=== PATIENT | male | born 1930 ===

== ENCOUNTER 2016-08-02 15:35 | Emergency (ER) | payer MEDICARE, MEDICAID ==
[2016-08-02 15:35] VITALS: BMI 31.1
[2016-08-02 15:46] VITALS: O2SAT 94
[2016-08-02 16:11] LABS: BASO # 0.1 K/uL (0.0-0.2); BASO % 0.6 % (0.0-2.0); EOS # 0.2 K/uL (0.0-0.7); EOS % 1.9 % (0.0-4.0); LYMPH # 0.8 K/uL (1.0-4.3); LYMPH % 9.1 % (20.0-40.0); MEAN CELL VOLUME 87.8 fL (80.0-94.0); MEAN CORPUSCULAR HEMOGLOBIN 29.7 pg (27.0-31.0); MEAN CORPUSCULAR HGB CONC 33.8 g/dL (33.0-37.0); MEAN PLATELET VOLUME 6.9 fL (7.2-11.7); MONO # 1.1 K/uL (0.0-0.8); MONO % 12.3 % (0.0-10.0); PLATELET COUNT 166 K/uL (130-400); RED CELL DISTRIBUTION WIDTH 13.6 % (11.5-14.5); WHITE BLOOD COUNT 8.8 K/uL (4.8-10.8)
[2016-08-02 16:18] LABS: CHLORIDE 95 mmol/L (98-107); SODIUM 129 mmol/L (132-148)
[2016-08-02 16:19] LABS: POTASSIUM 4.5 mmol/L (3.6-5.2)
[2016-08-02 16:21] LABS: ALKALINE PHOSPHATASE 101 U/L (38-126); ALT/SGPT 57 U/L (21-72); AST/SGOT 54 U/L (17-59); BILIRUBIN,TOTAL 0.4 mg/dL (0.2-1.3); BLOOD UREA NITROGEN 29 mg/dL (9-20); CARBON DIOXIDE 22 mmol/L (22-30); GFR AFRICAN-AMERICAN 44; GLUCOSE,RANDOM 122 mg/dL (75-110); TOTAL PROTEIN 7.4 g/dL (6.3-8.3)
[2016-08-02 16:22] LABS: CALCIUM 8.6 mg/dl (8.6-10.4)
[2016-08-02 16:48] LABS: EOSINOPHIL 4 % (0-4); NEUTROPHIL 76 % (50-75); TOTAL CELLS COUNTED 100
--- NOTE | 2016-08-02 16:50 | C.PDOC ---
History Of Present Illness 86 yr old male brought in via ambulance accompanied by family (history by family ), presents to the ER for evaluation of headache and burning sensation all over the head, especially to the back of the head which started WEIGHT CALCULATOR. Family reports afterwards the patients both hands started to tremble. Family states the patient had had these symptoms on and off for a long time. Patient denies fever , chills, vision changes, chest pain, SOB, nausea, vomiting, abdominal pain, diarrhea, dizziness, weakness or numbness. Time Seen by Provider: 08/02/16 15:49 Chief Complaint (Nursing): Headache History Per: Patient, Family History/Exam Limitations: clinical condition, language barrier Onset/Duration Of Symptoms: Sudden Onset (WEIGHT CALCULATOR) Past Medical History Reviewed: Historical Data, Nursing Documentation, Vital Signs Vital Signs: Last Vital Signs Temp 99.3 F 08/02/16 17:58 Pulse 70 08/02/16 17:58 Resp 20 08/02/16 17:58 BP 122/70 08/02/16 17:58 Pulse Ox 94 L 08/02/16 17:58 - Medical History PMH: HTN, Chronic Kidney Disease Family History: States: No Known Family Hx - Social History Hx Alcohol Use: No Hx Substance Use: No Review Of Systems Except As Marked, All Systems Reviewed And Found Negative. Constitutional: Negative for: Fever, Chills Eyes: Negative for: Vision Change Cardiovascular: Negative for: Chest Pain Respiratory: Negative for: Shortness of Breath Gastrointestinal: Negative for: Nausea, Vomiting, Abdominal Pain, Diarrhea Neurological: Positive for: Headache (headache and burning sensation to the head.). Negative for: Weakness, Numbness, Dizziness Physical Exam - Physical Exam Appears: Well, Non-toxic, No Acute Distress Skin: Warm, Dry Head: Atraumatic, Normacephalic Oral Mucosa: Moist Neck: Normal, Normal ROM, Supple Chest: Symmetrical, No Tenderness Cardiovascular: Rhythm Regular, No Murmur Respiratory: Normal Breath Sounds, No Rales, No Rhonchi, No Wheezing Gastrointestinal/Abdominal: Soft, No Tenderness, No Guarding, No Rebound, Hernia (Left inguinal hernia) Extremity: Normal ROM Neurological/Psych: Oriented x3, Normal Speech, Normal Motor Gait: With Assistance ED Course And Treatment - Laboratory Results Result Diagrams: 08/02/16 16:07 08/02/16 16:07 ECG: Interpreted By Me, Viewed By Me ECG Rhythm: Sinus Rhythm ECG Interpretation: Normal Rate From EC (BPM) O2 Sat by Pulse Oximetry: 94 (RA ) - CT Scan/US CT - Head Other Rad Studies (CT/US): Read By Radiologist, Radiology Report Reviewed CT/US Interpretation: PROCEDURE: CT HEAD WITHOUT CONTRAST. HISTORY: Headache burning back of head, shaking. COMPARISON: None available. TECHNIQUE: Axial computed tomography images were obtained through the head/brain without intravenous contrast. This CT exam was performed using one or more of the following dose reduction techniques: Automated exposure control, adjustment of the mA and/or kv according to patient size, and/or use of iterative reconstruction technique. Radiation dose: Total exam DLP = 858.01 mGy-cm. FINDINGS: HEMORRHAGE: No intracranial hemorrhage. BRAIN: No mass effect or edema. No atrophy or chronic microvascular ischemic changes. VENTRICLES: Unremarkable. No hydrocephalus. CALVARIUM: Unremarkable. PARANASAL SINUSES: Unremarkable as visualized. No significant inflammatory changes. MASTOID AIR CELLS: Unremarkable as visualized. No inflammatory changes. OTHER FINDINGS: None. IMPRESSION: No evidence of acute intracranial hemorrhage intracranial collection territorial infarct mass effect or midline shift. Medical Decision Making Medical Decision Making: Ordered * CT - Head * CXR * EKG * Troponin * CBC * Urinalysis * Tylenol PO Post UA results pt treated with IV rocephin after urine culture labs reviewed Na low, but no white count Pt had good home support, no fever, eating and drinking well, therefore trial of OP abx indicated Plan dc home PCP follow up Disposition Counseled Patient/Family Regarding: Studies Performed, Diagnosis, Need For Followup - Disposition Referrals: Yeyo Aden MD [Staff Provider] - Disposition: HOME/ ROUTINE Disposition Time: 18:45 Condition: FAIR Additional Instructions: Follow up with dr Oleary in 2 - 3 days Return to the ED promptly for any new or worsening symptoms Prescriptions: Ciprofloxacin [Cipro] 1 tab PO BID #14 tab Instructions: Urinary Tract Infection in Men (ED) Print Language: CZECH - Clinical Impression Clinical Impression: Urinary tract infection - Scribe Statement The provider has reviewed the documentation as recorded by the Markosiburmila Talavera Provider Attestation: All medical record entries made by the Scribe were at my direction and personally dictated by me. I have reviewed the chart and agree that the record accurately reflects my personal performance of the history, physical exam, medical decision making, and the department course for this patient. I have also personally directed, reviewed, and agree with the discharge instructions and disposition.
--- NOTE | 2016-08-02 16:53 | CT ---
PROCEDURE: CT HEAD WITHOUT CONTRAST. HISTORY: Headache burning back of head, shaking COMPARISON: None available. TECHNIQUE: Axial computed tomography images were obtained through the head/brain without intravenous contrast. This CT exam was performed using one or more of the following dose reduction techniques: Automated exposure control, adjustment of the mA and/or kv according to patient size, and/or use of iterative reconstruction technique. Radiation dose: Total exam DLP = 858.01 mGy-cm. FINDINGS: HEMORRHAGE: No intracranial hemorrhage. BRAIN: No mass effect or edema. No atrophy or chronic microvascular ischemic changes. VENTRICLES: Unremarkable. No hydrocephalus. CALVARIUM: Unremarkable. PARANASAL SINUSES: Unremarkable as visualized. No significant inflammatory changes. MASTOID AIR CELLS: Unremarkable as visualized. No inflammatory changes. OTHER FINDINGS: None. IMPRESSION: No evidence of acute intracranial hemorrhage intracranial collection territorial infarct mass effect or midline shift.
[2016-08-02 17:01] VITALS: RESP 20
[2016-08-02 17:46] LABS: RBC URINE 5 /hpf (0-3); URINE BACTERIA FEW (<OCC); URINE BILIRUBIN NEGATIVE (NEGATIVE); URINE BLOOD 1+ (NEGATIVE); URINE COLOR Yellow (YELLOW); URINE GLUCOSE (UA) NORMAL (Normal); URINE KETONE NEGATIVE (NEGATIVE); URINE LEUKOCYTE ESTERASE 3+ Leu/uL (Negative); URINE PROTEIN 1+ mg/dL (NEGATIVE); URINE UROBILINOGEN NORMAL mg/dL (0.2-1.0); WBC URINE 94 /hpf (0-5)
--- NOTE | 2016-08-02 17:51 | RAD ---
PROCEDURE: CHEST RADIOGRAPH, 1 VIEW HISTORY: AMS COMPARISON: Comparison is made to the previous study dated 07/10/2016 FINDINGS: LUNGS: No evidence of new infiltrate or consolidation in the lungs. PLEURA: No pneumothorax or pleural fluid seen. CARDIOVASCULAR: Normal. OSSEOUS STRUCTURES: No significant abnormalities. VISUALIZED UPPER ABDOMEN: Normal. OTHER FINDINGS: None. IMPRESSION: No active disease.
[2016-08-02 17:59] VITALS: BP 122/70; PULSE 70; TEMP 99.3
[2016-08-02] MEDS ORDERED: cefTRIAXone IV 1 gm in Dextros 1 GM in Dextrose 5% In Water 50 ML IVPB STA (17:59)
[2016-08-02] MEDS ORDERED: cefTRIAXone IV 1 gm in Dextros 50 ML IVPB ONE (18:13)
--- NOTE | 2016-08-07 13:13 | CARD ---
APPROVED REPORT EKG Measurement Heart [id number] <Conclusion> Normal sinus rhythm Normal ECG
== END 2016-08-02 18:30 | disposition home or self-care (01) ==
LOC: C.ER 15:35
DX: N39.0 Urinary tract infection, site not specified (principal)
CPT/HCPCS: 70450; 71010; 80053; 81001; 84484; 85025; 85610; 85730; 87086; 87181; 96374; 99285; J0696

== ENCOUNTER 2016-08-11 06:37 | Day surgery (SDC) | payer MEDICARE, MEDICAID ==
[2016-07-10 11:22] VITALS: BMI 31.1
[2016-08-11] MEDS ORDERED: Propofol 10 mg/ml Inj (20 ML) ONE ×2 (07:49→09:47)
[2016-08-11] MEDS ORDERED: Bupivacaine/Epi 0.25%-1:200,000 10 ml PF inj IJ ONE ×2 (07:50→07:59)
[2016-08-11] MEDS ORDERED: Lidocaine 1% Inj (20ml) ONE (07:50)
[2016-08-11] MEDS ORDERED: Rocuronium 10 mg/ml (5 ml) ONE (07:54)
[2016-08-11] MEDS ORDERED: ceFAZolin IV 2 gm in Dextrose 50 ML IVPB ONE (07:59)
[2016-08-11 08:09] LABS: CHLORIDE 101 mmol/L (98-107); POTASSIUM 3.9 mmol/L (3.6-5.2); SODIUM 136 mmol/L (132-148)
[2016-08-11 08:11] LABS: GFR AFRICAN-AMERICAN > 60
[2016-08-11 08:12] LABS: BLOOD UREA NITROGEN 18 mg/dL (9-20); CALCIUM 8.7 mg/dl (8.6-10.4); CARBON DIOXIDE 20 mmol/L (22-30); GLUCOSE,RANDOM 98 mg/dL (75-110)
[2016-08-11] MEDS ORDERED: Lactated Ringer's 1,000 ML IV ONE ×2 (08:20→09:30)
[2016-08-11] MEDS ORDERED: ePHEDrine 50 mg/ml Inj ONE (08:37)
[2016-08-11] MEDS ORDERED: Morphine 4 MG/ML VIAL ONE (09:59)
[2016-08-11] MEDS ORDERED: HYDROmorphone 0.5 mg/0.5 ml ISec IVP PRN (10:11)
--- NOTE | 2016-08-11 10:14 | PCM.SURG1 ---
Surgeon's Initial Post Op Note - Surgeon's Notes Surgeon: Sari Mixing Machine Feeder: PGY3, Abel RFNA Type of Anesthesia: General Endo Pre-Operative Diagnosis: L inguinal hernia Operative Findings: Indirect and direct L inguinal hernia Post-Operative Diagnosis: Indirect and direct L inguinal hernia Operation Performed: Robotic indirect and direct L inguinal hernia repair with mesh Specimen/Specimens Removed: hernia contents Estimated Blood Loss: EBL {In ML}: 10 Blood Products Given: N/A Drains Used: No Drains Post-Op Condition: Good Date of Surgery/Procedure: 08/11/16 Time of Surgery/Procedure: 08:15
[2016-08-11] MEDS ORDERED: Oxycodone/Acetaminophen 5/325 mg Tab PO ONE (10:16)
[2016-08-11 11:42] VITALS: O2SAT 96
[2016-08-11 12:32] VITALS: BP 121/87; PULSE 80; RESP 18; TEMP 96.7
--- NOTE | 2016-08-12 04:30 | OP ---
PROCEDURE DATE: 08/11/2016 PREOPERATIVE DIAGNOSIS: Left inguinal hernia. POSTOPERATIVE DIAGNOSIS: Left direct and indirect inguinal hernia. PROCEDURE DONE: Robotic left inguinal hernia repair with mesh. SURGEON: Huey Guo MD ASSISTANTS: Shannan Callahan. Shannan was present from the beginning to end of the procedure, helped in the prepping and draping, placement of the port, docking and undocking of the robot. Benny Geiger, PGY-3 resident. ANESTHESIA: General endotracheal tube anesthesia. ESTIMATED BLOOD LOSS: Around 10 mL. DRAINS: None. PATHOLOGY: Hernial sac and contents were sent for pathology. COMPLICATIONS: None. INTRAOPERATIVE FINDINGS: The patient had a large direct and very small indirect inguinal hernia on the left side. INTRAOPERATIVE STEPS: This 86-year-old male who was diagnosed with a left inguinal hernia. The patient was consented for the robotic left inguinal hernia repair with the mesh. Brought to the OR, placed supine on the operating table. After induction of the anesthesia, the Brooks catheter was placed and the abdomen was prepped and draped in the usual sterile fashion. Supraumbilical incision was made. After incising skin and subcutaneous tissue, the fascia was incised. Peritoneal cavity was entered. Pneumo was created. Another three 8 mm ports were placed in the right upper quadrant, left upper quadrant, left midline, and the left side off the midline and the robot was brought in. Camera arm and arm 1 and arm2 were docked and through the console, the dissection of the peritoneum was done from ASIS up to the midline and the dissection was carried down carried down medially to the pubic symphysis. The patient found to have unusual amount of adhesion, and the lysis of adhesion was done, and the patient found to have a direct large, as well as a small indirect defect, and inferiorly the peritoneum was dissected up to the vas deferens and spermatic cord vessels anteriorly . The inferior epigastric artery was identified and the lateral pelvic wall was identified, and after that mesh was implanted. After proper implantation of the mesh, the peritoneum was sutured with a 2-0 Vicryl V-Loc suture and pneumo was deflated. All the ports were taken out under vision. The robot was undocked before deflating the pneumo. The umbilical port site was closed in 2 layers, the fascia with 0 Vicryl interrupted suture, skin with a 4-0 Monocryl. Dry sterile dressing was applied. The patient tolerated the procedure well. Count of instruments and gauze was correct. There was no apparent complication. The patient was extubated in the OR, sent to the postanesthesia care unit in stable condition. Huey Guo MD cc: [id number] TT: 08/12/2016 04:29:14 tn MTDD
== END 2016-08-11 12:53 | disposition home or self-care (01) ==
LOC: C.SDS 06:37
PROVIDERS: ATTEND Surgery Surgical Critical Care
DX: K40.90 Unilateral inguinal hernia, without obstruction or gangrene, not specified as recurrent (principal)
CPT/HCPCS: 36415; 49507; 80048; 88302; J0690; J1170; J2001; J2270; J2405; J2704; J3010; J7120

== ENCOUNTER 2018-05-05 08:31 | Emergency (ER) | payer MEDICARE, MEDICAID ==
[2018-05-05 08:44] VITALS: TEMP 98.1; BMI 24.2
[2018-05-05 09:22] VITALS: BP 172/66; PULSE 64; RESP 21
[2018-05-05 09:22] LABS: BASO % 0.5 % (0.0-2.0); EOS # 0.5 K/uL (0.0-0.7); EOS % 6.5 % (0.0-4.0); HEMOGLOBIN 13.5 g/dL (12.0-18.0); LYMPH # 1.1 K/uL (1.0-4.3); LYMPH % 14.5 % (20.0-40.0); MEAN CELL VOLUME 89.5 fL (80.0-94.0); MEAN CORPUSCULAR HEMOGLOBIN 31.1 pg (27.0-31.0); MEAN CORPUSCULAR HGB CONC 34.8 g/dL (33.0-37.0); MEAN PLATELET VOLUME 7.2 fL (7.2-11.7); MONO # 0.8 K/uL (0.0-0.8); NEUT # 5.1 K/uL (1.8-7.0); NEUT % 68.5 % (50.0-75.0); NRBC % 0.1 % (0.0-2.0); RBC 4.32 Mil/uL (4.40-5.90); RED CELL DISTRIBUTION WIDTH 13.3 % (11.5-14.5); WHITE BLOOD COUNT 7.5 K/uL (4.8-10.8)
[2018-05-05 09:24] VITALS: O2SAT 94
--- NOTE | 2018-05-05 09:24 | C.PDOC ---
History Of Present Illness 88 years old male with PMHx of HTN, bradycardia, and hypothyroidism is brought to ED by his family for complaints of left sided chest pain associated with SOB that began 2 hours ago s/p upstairs in the hospital. Patient describes pain as constant, pluritic and non-radiating. Denies cough, fever, abdominal pain, nausea, or vomiting. Patient reports taking baby aspirin this morning. Time Seen by Provider: 05/05/18 08:37 Chief Complaint (Nursing): Chest Pain History Per: Patient History/Exam Limitations: no limitations Onset/Duration Of Symptoms: Hrs Current Symptoms Are (Timing): Still Present Modifying Factors: None Exacerbating Factors: None Recent travel outside of the [place]: No Past Medical History Reviewed: Historical Data, Nursing Documentation, Vital Signs Vital Signs: Last Vital Signs Temp 98.1 F 05/05/18 08:37 Pulse 66 05/05/18 08:37 Resp 19 05/05/18 09:01 BP 143/63 05/05/18 08:37 Pulse Ox 94 L 05/05/18 09:01 - Medical History PMH: HTN, Hypothyroidism, Chronic Kidney Disease Surgical History: Endoscopy Family History: States: No Known Family Hx - Social History Hx Alcohol Use: No Hx Substance Use: No - Immunization History Hx Tetanus Toxoid Vaccination: No Hx Influenza Vaccination: No Hx Pneumococcal Vaccination: No Review Of Systems Constitutional: Negative for: Fever, Chills Cardiovascular: Positive for: Chest Pain Respiratory: Positive for: Shortness of Breath. Negative for: Cough Gastrointestinal: Negative for: Nausea, Vomiting Skin: Negative for: Rash Neurological: Negative for: Weakness, Numbness Physical Exam - Physical Exam Appears: Non-toxic, In Acute Distress (Mild dicomfort ), Other (Flat affect ) Skin: Normal Color, Warm, Dry, No Rash Head: Atraumatic, Normacephalic Eye(s): bilateral: Normal Inspection, PERRL, EOMI Oral Mucosa: Moist Neck: Normal ROM, Supple Chest: Symmetrical, No Tenderness Cardiovascular: Rhythm Regular Respiratory: Normal Breath Sounds, No Rales, No Rhonchi, No Wheezing Gastrointestinal/Abdominal: Soft, No Tenderness Extremity: Normal ROM, No Pedal Edema Extremity: Bilateral: Atraumatic, Normal Color And Temperature, Normal ROM Pulses: Left Radial: Normal, Right Radial: Normal Neurological/Psych: Oriented x3, Normal Speech Gait: Steady ED Course And Treatment - Laboratory Results Result Diagrams: 05/05/18 09:14 05/05/18 09:14 ECG: Interpreted By Me, Viewed By Me Interpretation Of ECG: Normal Sinus RHythm at 64 bpm. Normal [place]. No acute ST/T wave changes. O2 Sat by Pulse Oximetry: 94 (RA) Pulse Ox Interpretation: Normal Progress Note: Adminsitered Aspirin. Ordered blood work and CXR. 9:20- Patient states he has no current chest pain, does not want any further testing done, wants to go home. He has agreed with sign out against my medical advice, and understands that by doing so he risks worsening of current condition, heart attack or possibly even . Disposition - Disposition Referrals: Cynthia Pepper MD [Staff Provider] - Disposition: AGAINST MEDICAL ADVICE Disposition Time: 09:20 Condition: STABLE Additional Instructions: FOLLOW UP WITH YOUR DOCTOR IN 1-2 DAYS RETURN TO EMERGENCY ROOM IMMEDIATELY IF YOUR SYMPTOMS BECOME WORSE OR RETURN SEGUIR CON DELACRUZ MDICO EN 1-2 MURPHY VUELVA INMEDIATAMENTE A LA DAMI DE EMERGENCIA SI LAINEY SNTOMAS SE HACEN PEOR O DEVOLUCIN Instructions: Chest Pain (DC), Leaving Against Medical Advice Forms: [facility] (Chilean) Print Language: KHMER - Clinical Impression Clinical Impression: Chest pain, Left against medical advice - Scribe Statement The provider has reviewed the documentation as recorded by the Scriburmila Romeo All medical record entries made by the Scribe were at my direction and personally dictated by me. I have reviewed the chart and agree that the record accurately reflects my personal performance of the history, physical exam, medical decision making, and the department course for this patient. I have also personally directed, reviewed, and agree with the discharge instructions and disposition.
--- NOTE | 2018-05-05 09:24 | C.PDOC ---
Time Seen by Provider: 05/05/18 08:37 Chief Complaint (Nursing): Chest Pain Past Medical History Vital Signs: Last Vital Signs Temp 98.1 F 05/05/18 08:37 Pulse 66 05/05/18 08:37 Resp 19 05/05/18 09:01 BP 143/63 05/05/18 08:37 Pulse Ox 94 L 05/05/18 09:01 - Medical History PMH: HTN, Hypothyroidism, Chronic Kidney Disease Surgical History: Endoscopy - Social History Hx Alcohol Use: No Hx Substance Use: No - Immunization History Hx Tetanus Toxoid Vaccination: No Hx Influenza Vaccination: No Hx Pneumococcal Vaccination: No ED Course And Treatment O2 Sat by Pulse Oximetry: 94 Progress Note: 9:20- Patient states he has no current chest pain, does not want any further testing done, wants to go home. He has agreed with sign out against my medical advice, and understands that by doing so he risks worsening of current condition, heart attack or possibly even . Disposition Counseled Patient/Family Regarding: Diagnosis, Need For Followup - Disposition Referrals: Cynthia Pepper MD [Staff Provider] - Disposition: AGAINST MEDICAL ADVICE Disposition Time: 09:20 Condition: STABLE Additional Instructions: FOLLOW UP WITH YOUR DOCTOR IN 1-2 DAYS RETURN TO EMERGENCY ROOM IMMEDIATELY IF YOUR SYMPTOMS BECOME WORSE OR RETURN SEGUIR CON DELACRUZ MDICO EN 1-2 MURPHY VUELVA INMEDIATAMENTE A LA DAMI DE EMERGENCIA SI LAINEY SNTOMAS SE HACEN PEOR O DEVOLUCIN Instructions: Chest Pain (DC), Leaving Against Medical Advice Print Language: [place] - Clinical Impression Clinical Impression: Chest pain, Left against medical advice
[2018-05-05 09:31] LABS: PROTHROMBIN TIME 11.4 SECONDS (9.7-12.2)
[2018-05-05 09:38] LABS: ALB/GLOB RATIO 1.2 (1.0-2.1); ALBUMIN 4.1 g/dL (3.5-5.0); ALT/SGPT 34 U/L (21-72); AST/SGOT 34 U/L (17-59); BLOOD UREA NITROGEN 20 mg/dL (9-20); CALCIUM 8.7 mg/dl (8.6-10.4); GFR NON-AFRICAN AMERICAN > 60
[2018-05-05 09:51] LABS: B-TYPE NATRIURETIC PEPTIDE 323 pg/mL (0-900); CK-MB 0.64 ng/mL (0.0-3.38)
--- NOTE | 2018-05-05 11:15 | RAD ---
Date of service: 05/05/2018 HISTORY: CP COMPARISON: Portable chest 08/02/2016. FINDINGS: LUNGS: No interval pulmonary disease appreciated bilaterally. PLEURA: No significant pleural effusion identified, no pneumothorax apparent. CARDIOVASCULAR: No aortic atherosclerotic calcification present. Normal cardiac size. No pulmonary vascular congestion. OSSEOUS STRUCTURES: No significant abnormalities. VISUALIZED UPPER ABDOMEN: Normal. OTHER FINDINGS: None. IMPRESSION: No interval acute cardiopulmonary disease appreciated.
--- NOTE | 2018-05-06 23:23 | CARD ---
APPROVED REPORT Date of service: 05/05/2018 EKG Measurement Heart [id number] <Conclusion> Normal sinus rhythm Normal ECG
== END 2018-05-05 09:35 | disposition left against medical advice (07) ==
LOC: C.ER 08:31
DX: R07.9 Chest pain, unspecified (principal)